=== PATIENT | female | born 1950 | race Caucasian/White ===

== ENCOUNTER → 2016-11-29 | Outpatient (CLI) | payer MEDICARE, OTHER | LOC: LAB.O 11:48 | PROVIDERS: ATTEND Obstetrics & Gynecology | DX: R19.7 Diarrhea, unspecified (principal); E11.9 Type 2 diabetes mellitus without complications ==

== ENCOUNTER → 2016-12-27 | Outpatient (CLI) | payer MEDICARE, OTHER ==
--- NOTE | 2016-12-28 09:41 | MAM ---
EXAM DESCRIPTION: MAMMO BREAST SCREENING BILATERAL CAD, images were reviewed with CAD technology, R2 computer-aided detection. CLINICAL HISTORY: [facility]. COMPARISON: 2013. FINDINGS: Routine views are obtained. Glandular tissue is near completely fatty involuted period no dominant mass, architectural distortion or clustered microcalcification.. IMPRESSION: Benign exam. BIRAD CATEGORY: 2 BENIGN RECOMMENDATIONS: FOLLOW-UP: Routine screening mammogram in one year. According to the [employer], yearly mammograms are recommended starting at age 40 and continuing as long as a woman is in good health. Any breast change noted on a breast self-exam should be reported promptly to the patient's healthcare provider. Breast MRI is recommended for women with an approximately 20-25% or greater lifetime risk of breast cancer, including women with a strong family history of breast or ovarian cancer and women who have been treated for Hodgkin's disease. Electronically signed by: Kinsey Bueno 12/28/2016 09:40
== END | disposition home or self-care (01) ==
LOC: MAMMO 11:26
PROVIDERS: ATTEND Obstetrics & Gynecology
DX: Z12.31 Encounter for screening mammogram for malignant neoplasm of breast (principal)

== ENCOUNTER → 2017-04-06 | Outpatient (CLI) | payer OTHER | END | disposition home or self-care (01) | LOC: LAB.O 10:15 | PROVIDERS: ATTEND Obstetrics & Gynecology | DX: M10.9 Gout, unspecified (principal); E78.5 Hyperlipidemia, unspecified ==